=== PATIENT | female | born 1975 | race Caucasian/White ===

== ENCOUNTER → 2016-09-20 | Outpatient (CLI) | payer BC ==
--- NOTE | 2016-09-20 08:05 | US ---
EXAMINATION TYPE: US abdomen complete DATE OF EXAM: 09/20/2016 7:26 AM COMPARISON: No previous CLINICAL HISTORY: R10.84 Abd Pain. Intermittent abdomen pain x 1 year, racing heart, diarrhea EXAM MEASUREMENTS: Liver Length: 14.2 cm Gallbladder Wall: 0.2 cm CBD: 0.3 cm Spleen: 10.5 cm Right Kidney: 12.1 x 5.2 x 5.4 cm Left Kidney: 11.1 x 5.3 x 4.9 cm Findings: Pancreas: wnl Liver: wnl Gallbladder: wnl Evidence for sonographic Rios's sign: yes CBD: wnl Spleen: visualized portions wnl, limited by rib shadowing and overlying bowel gas Right Kidney: visualized portions wnl, limited by rib shadowing and overlying bowel gas Left Kidney: visualized portions wnl, limited by rib shadowing and overlying bowel gas Upper IVC: wnl Abd Aorta: wnl The liver is homogenous. The intrahepatic portion of the IVC and proximal abdominal aorta are within normal limits. There is no evidence of cholelithiasis. Common bile duct is unremarkable. The visu alized portions of the pancreas are homogenous. The spleen is unremarkable. Kidneys are symmetric a nd free of hydronephrosis. No renal lesions are seen. IMPRESSION: Unremarkable study
== END ==
LOC: RADUSWWP 07:02
PROVIDERS: ATTEND Internal Medicine
DX: R10.84 Generalized abdominal pain (principal)
CPT/HCPCS: 76700

== ENCOUNTER → 2016-10-03 | Outpatient (CLI) | payer BC ==
--- NOTE | 2016-10-03 09:28 | NM ---
EXAMINATION TYPE: NM hepatobiliary w EF DATE OF EXAM: 10/03/2016 9:00 AM COMPARISON: NONE HISTORY: Right upper quadrant pain TECHNIQUE: After the intravenous administration of 5.5 mCi Tc 99m Mebrofenin hepatobiliary scintigrap hy is performed. Immediate images post injection. FINDINGS: There is satisfactory initial accumulation of tracer by the liver. The gallbladder is visualized wit hin 20 minutes. At one hour 8 ounces of oral ensure plus is given to mimic CCK and gallbladder eje ction fraction is calculated at 65 %, in the normal range. Therefore there is no scintigraphic evide nce of cystic or common bile duct obstruction to suggest acute cholecystitis or gallbladder dyskinesi a. IMPRESSION: 1. No evidence of cholecystitis 2. Ejection fraction 65%
== END | disposition home or self-care (01) ==
LOC: RADNMMAIN 06:55
PROVIDERS: ATTEND Internal Medicine
DX: R10.84 Generalized abdominal pain (principal)
CPT/HCPCS: 78226; A9537

== ENCOUNTER → 2016-11-23 | Outpatient (CLI) | payer BC ==
[2016-11-23 07:56] LABS: CHCM 33.7; HCT 42.3 % (34.0-46.0); HDW 2.27; HGB 14.2 gm/dL (11.4-16.0); MCH 31.1 pg (25.0-35.0); MCHC 33.6 g/dL (31.0-37.0); MCV 92.5 fL (80.0-100.0); Mean Platelet Volume 7.7; RBC 4.58 m/uL (3.80-5.40); RDW 12.3 % (11.5-15.5); WBC 7.4 k/uL (3.8-10.6)
[2016-11-23 10:45] LABS: ALT 29 U/L (9-52); AST 22 U/L (14-36); Alkaline Phosphatase 52 U/L (38-126); Anion Gap 10 mmol/L; Blood Urea Nitrogen 11 mg/dL (7-17); Calcium 9.3 mg/dL (8.4-10.2); Carbon Dioxide 27 mmol/L (22-30); Chloride 105 mmol/L (98-107); Cholesterol 147 mg/dL (<200); Glucose 93 mg/dL (74-99); HDL Cholesterol 71 mg/dL (40-60); Non-African American GFR(MDRD) >60 (>60 ml/min/1.73 sqM); Potassium 4.3 mmol/L (3.5-5.1); Sodium 142 mmol/L (137-145); Total Bilirubin 0.6 mg/dL (0.2-1.3); Total Protein 7.4 g/dL (6.3-8.2); Triglycerides 51 mg/dL (<150)
[2016-11-23 11:18] LABS: Cancer Anitgen 125 6.2 U/mL (<35.1)
== END | disposition home or self-care (01) ==
LOC: LABWHC1 07:38
PROVIDERS: ATTEND Obstetrics & Gynecology
DX: Z00.00 Encounter for general adult medical examination without abnormal findings (principal); E78.00 Pure hypercholesterolemia, unspecified; D64.9 Anemia, unspecified; Z13.29 Encounter for screening for other suspected endocrine disorder; Z15.01 Genetic susceptibility to malignant neoplasm of breast
CPT/HCPCS: 36415; 80053; 80061; 84439; 84443; 85027; 86304

== ENCOUNTER 2017-02-09 11:50 | Emergency (ER) | payer BC ==
[2017-02-09 11:57] VITALS: BP 131/61; PULSE 89; RESP 18; TEMP 97.6
--- NOTE | 2017-02-09 13:00 | XR ---
EXAMINATION TYPE: XR toes LT DATE OF EXAM: 02/09/2017 COMPARISON: NONE HISTORY: Hematoma. Pain. TECHNIQUE: 3 views FINDINGS: 3 views of the left fourth toe were obtained. I see no fracture nor dislocation. Joint spac es are normal. There is mild soft tissue swelling. IMPRESSION: Soft tissue swelling. No fracture. No evidence of osteomyelitis.
[2017-02-09] MEDS ORDERED: SULFAMETH-TMP DS STARTER PACK 2 TAB BTL PO STA (13:10)
--- NOTE | 2017-02-09 13:13 | ED ---
Skin/Abscess/FB HPI - General Chief complaint: Skin/Abscess/Foreign Body Stated complaint: POSS BUG BITE, LEFT FOOT SECOND SMALL TOE Time Seen by Provider: 02/09/17 11:58 Source: patient, RN notes reviewed, old records reviewed Mode of arrival: ambulatory Limitations: no limitations - History of Present Illness Initial comments: 41-year-old female presents emergency Department chief complaint of swelling and pain and blistering of her left fourth toe for the past 24 hours. She reports that last night she thought she may have stepped on a spider bit. She reports that she noticed it was directly between her toes where she initially had the pain. She reports that she woke up this morning and had significant blistering and increased swelling over her toe. She also states that there is been some red streaking going up her foot. She denies any fever or chills, ankle or foot pain. She reports that the toe seems to be throbbing. She denies any history of MRSA that she is aware of. Patient denies any recent fever, chills, shortness of breath, chest pain, back pain, abdominal pain, nausea vomiting, numbness or tingling, dysuria or hematuria, constipation or diarrhea, headaches or visual changes, or any other current symptoms - Related Data Previous Rx's Medication Instructions Recorded Sulfamethox-Tmp 800-160Mg [Bactrim 2 tab PO Q12HR #40 tab 02/09/17 DS 800-160 mg] Allergies Allergy/AdvReac Type Severity Reaction Status Date / Time No Known Allergies Allergy Verified 02/09/17 11:57 Review of Systems ROS Statement: Those systems with pertinent positive or pertinent negative responses have been documented in the HPI. ROS Other: All systems not noted in ROS Statement are negative. Past Medical History Past Medical History: No Reported History History of Any Multi-Drug Resistant Organisms: None Reported Additional Past Surgical History / Comment(s): mastectomy preventative Past Psychological History: No Psychological Hx Reported Smoking Status: Never smoker Past Alcohol Use History: None Reported Past Drug Use History: None Reported General Exam - General Exam Comments Initial Comments: 41-year-old female. No acute distress. Limitations: no limitations General appearance: alert, in no apparent distress Head exam: Present: atraumatic, normocephalic, normal inspection Eye exam: Present: normal appearance, PERRL, EOMI. Absent: scleral icterus, conjunctival injection, periorbital swelling ENT exam: Present: normal exam, mucous membranes moist Neck exam: Present: normal inspection. Absent: tenderness, meningismus, lymphadenopathy Respiratory exam: Present: normal lung sounds bilaterally. Absent: respiratory distress, wheezes, rales, rhonchi, stridor Cardiovascular Exam: Present: regular rate, normal rhythm, normal heart sounds. Absent: systolic murmur, diastolic murmur, rubs, gallop, clicks GI/Abdominal exam: Present: soft, normal bowel sounds. Absent: distended, tenderness, guarding, rebound, rigid Extremities exam: Present: normal inspection, full ROM, normal capillary refill. Absent: tenderness, pedal edema, joint swelling, calf tenderness Left Upper Leg exam: Present: normal inspection, full ROM Knee exam: Present: normal inspection, full ROM Lower Leg exam: Present: normal inspection, full ROM Ankle exam: Present: normal inspection, full ROM Foot/Toe exam: Present: full ROM, tenderness, swelling (Are left fourth toe), ecchymosis (Patient has an ecchymosis and bowl over her left fourth toe. Between the fourth and third toe there was a initial area of white firmness which is the rectal site of pain. No circumferential blister or erythema noted. The left fourth toe is significantly swollen.), erythema (Evidence of mild lymphangitic streaking up the dorsum of the foot. No pain in the groin hernia or any other extended process.). Absent: normal inspection Neurovascular tendon exam: Present: no vascular compromise Gait: observed and normal Back exam: Present: normal inspection Neurological exam: Present: alert, oriented X3, CN II-XII intact Psychiatric exam: Present: normal affect, normal mood Skin exam: Present: warm, dry, intact, normal color. Absent: rash Course Vital Signs 02/09/17 11:54 Temperature 97.6 F Pulse Rate 89 Respiratory 18 Rate Blood Pressure 131/61 O2 Sat by Pulse 100 Oximetry Medical Decision Making - Medical Decision Making 41-year-old female presents emergency Department chief complaint of swelling and pain and blistering of her left fourth toe for the past 24 hours. She reports that last night she thought she may have stepped on a spider bit. She reports that she noticed it was directly between her toes where she initially had the pain. She reports that she woke up this morning and had significant blistering and increased swelling over her toe. She also states that there is been some red streaking going up her foot. She denies any fever or chills, ankle or foot pain. Patient does have significant swelling and ecchymosis over the top of the left fourth toe. Patient is Dr. Luis and he also examined the patient. He recommended doing a x-ray of the toe. X-rays reviewed and negative for any acute process including osteomyelitis. Patient with steroids then drained with the edge of a 11 blade scalpel. Significant amount of serosanguineous fluid was removed. No significant pus was drained. The patient then was covered with bacitracin and dressing. Patient will be started on Bactrim DS. Given a starter pack in the emergency department. Patient will be advised to follow-up with her primary care provider on Friday if this seems to become worse. Also discussed close follow-up to the emergency department if she has any alarming signs or symptoms occur. Patient agrees to treatment plan and will comply. - Radiology Data Radiology results: report reviewed Evidence of soft tissue swelling. No fracture. No evidence of osteomyelitis. Disposition Clinical Impression: Cellulitis of fourth toe, left, Insect bite Disposition: HOME SELF-CARE Condition: Good Instructions: Insect Bite or Sting (ED) Additional Instructions: Patient advised to follow-up with her primary care provider. Take antibiotics as directed. Also recommending do warm soaks over the toe 3-4 times a day. Recommend following up with her primary care provider on Friday if no improvement. Prescriptions: Sulfamethox-Tmp 800-160Mg [Bactrim DS 800-160 mg] 2 tab PO Q12HR #40 tab Referrals: Opal Singh MD [Primary Care Provider] - 1-2 days Time of Disposition: 13:10
== END 2017-02-09 13:32 | disposition home or self-care (01) ==
LOC: EC 11:50
DX: S90.465A Insect bite (nonvenomous), left lesser toe(s), initial encounter (principal); L03.032 Cellulitis of left toe; W57.XXXA Bitten or stung by nonvenomous insect and other nonvenomous arthropods, initial encounter
CPT/HCPCS: 10060; 87070; 87205; 99284

== ENCOUNTER → 2023-05-13 | Outpatient (CLI) | payer BC ==
--- NOTE | 2023-05-13 10:07 | US ---
EXAMINATION TYPE: US abdomen complete DATE OF EXAM: 05/13/2023 COMPARISON: NONE CLINICAL INDICATION: Female, 47 years old with history of R10.9 ABD PAIN; Epigastric pain x 2 weeks. Denies any other signs or symptoms. TECHNIQUE: Multiple sonographic images of the abdomen are obtained. FINDINGS: EXAM MEASUREMENTS: Liver Length: 15.17 cm Gallbladder Wall: 0.14 cm CBD: 0.38 cm Spleen: 10.42 cm Right Kidney: 11.69 x 4.86 x 5.30 cm Left Kidney: 11.62 x 5.23 x 4.94 cm SISAL PICKER NOTES: Septated liver cyst right lobe = 1.6 x 2.2 x 1.5 cm Pancreas: wnl Liver: wnl Gallbladder: wnl Evidence for sonographic Rios's sign: CBD: wnl Spleen: wnl Right Kidney: wnl Left Kidney: wnl Upper IVC: wnl Abd Aorta: wnl The liver is homogenous. The intrahepatic portion of the IVC and proximal abdominal aorta are within normal limits. There is no evidence of cholelithiasis. Common bile duct is unremarkable. The visu alized portions of the pancreas are homogenous. The spleen is unremarkable. Kidneys are symmetric a nd free of hydronephrosis. No renal lesions are seen. IMPRESSION: Septated hepatic cyst right hepatic lobe.
== END | disposition home or self-care (01) ==
LOC: RADUSWWP 08:06
PROVIDERS: ATTEND Internal Medicine
DX: K76.89 Other specified diseases of liver (principal); R10.13 Epigastric pain
CPT/HCPCS: 76700